=== PATIENT | male | born 1990 | race African-American/Black ===

== ENCOUNTER 2018-02-08 14:20 | Emergency (ER) | payer OTHER ==
[2018-02-08 14:39] VITALS: BP 133/83
[2018-02-08] MEDS ORDERED: Cephalexin CAP* 500 MG PO ONE (14:46)
--- NOTE | 2018-02-08 14:47 | UC ---
Lower Extremity/Ankle HPI - HPI Summary HPI Summary: 27 yo male with right toe pain cut nail too short stubbed toe now swollen and painful no fever no pus - History of Current Complaint Chief Complaint: UCLowerExtremity Stated Complaint: TOE ISSUE Time Seen by Provider: 02/08/18 14:37 Hx Obtained From: Patient Onset/Duration: Gradual Onset Severity Initially: Mild Severity Currently: Mild Pain Intensity: 6 - 6 if he bumps it Pain Scale Used: 0-10 Numeric Aggravating Factor(s): Standing, Ambulation Alleviating Factor(s): Rest, Elevation Able to Bear Weight: Yes - Allergies/Home Medications Allergies/Adverse Reactions: Allergies Allergy/AdvReac Type Severity Reaction Status Date / Time No Known Allergies Allergy Verified 02/08/18 14:30 Home Medications: Home Medications Amlodipine Besylate [Norvasc 2.5 mg tab] 2.5 mg PO DAILY 02/08/18 [History Confirmed 02/08/18] Docusate CAP* [Colace Cap*] 100 mg PO BID 02/08/18 [History Confirmed 02/08/18] Fenofibrate 40 mg PO DAILY 02/08/18 [History Confirmed 02/08/18] Ferrous Sulfate TAB* 325 mg PO DAILY 02/08/18 [History Confirmed 02/08/18] PMH/Surg Hx/FS Hx/Imm Hx Previously Healthy: Yes Endocrine History: Dyslipidemia Cardiovascular History: Hypertension - Surgical History Surgical History: None - Family History Known Family History: Positive: Hypertension - Social History Alcohol Use: None Substance Use Type: None Smoking Status (MU): Never Smoked Tobacco Review of Systems Constitutional: Negative Skin: Negative Eyes: Negative ENT: Negative Respiratory: Negative Cardiovascular: Negative Gastrointestinal: Negative Genitourinary: Negative Motor: Negative Neurovascular: Negative Musculoskeletal: Negative Neurological: Negative Psychological: Negative Is Patient Immunocompromised?: No All Other Systems Reviewed And Are Negative: Yes Physical Exam Triage Information Reviewed: Yes Appearance: Well-Appearing, No Pain Distress, Well-Nourished Vital Signs: Initial Vital Signs Temp 97.9 F 02/08/18 14:32 Pulse 76 02/08/18 14:32 Resp 18 02/08/18 14:32 BP 133/83 02/08/18 14:32 Pulse Ox 100 02/08/18 14:32 Vital Signs Reviewed: Yes Eyes: Positive: Conjunctiva Clear ENT: Positive: Hearing grossly normal. Negative: Nasal congestion, Nasal drainage, Tonsillar exudate, Trismus, Sinus tenderness, Uvula midline Neck: Positive: Supple, Nontender Respiratory: Positive: Lungs clear, Normal breath sounds, No respiratory distress Cardiovascular: Positive: RRR, No Murmur Musculoskeletal: Positive: ROM Intact Neurological: Positive: Alert Psychological Exam: Normal Skin Exam: Other - see image Lower Extremity Course/Dx - Differential Dx/Diagnosis Provider Diagnoses: right great toe infection Discharge - Sign-Out/Discharge Documenting (check all that apply): Discharge/Admit/Transfer - Discharge Plan Condition: Stable Disposition: HOME Prescriptions: Cephalexin CAP* [Keflex CAP*] 500 mg PO QID #28 cap Patient Education Materials: Cellulitis (ED) Referrals: Beti Gallegos MD [Primary Care Provider] - 3 Days (if not better) Additional Instructions: warm soapy soaks 3-4 x day until better recheck for new or worsening symptoms - Billing Disposition and Condition Condition: STABLE Disposition: Home Images Feet (Multiple View): 1 - red /swollen/no pus
== END 2018-02-08 15:00 | disposition home or self-care (01) ==
LOC: UCEAST 14:20
DX: L08.9 Local infection of the skin and subcutaneous tissue, unspecified (principal)
CPT/HCPCS: 99212; A9270-GY; G0463

== ENCOUNTER 2019-07-21 11:21 | Emergency (ER) | payer OTHER ==
[2019-07-21 11:35] VITALS: BP 137/88
--- NOTE | 2019-07-21 11:39 | UC ---
Skin Complaint HPI - HPI Summary HPI Summary: 29 yo male presents with LEFT ring finger ?infection. He tells me that he cut a hangnail here a few days ago and today noticed his finger around the nail was red, swollen, and the edge was draining bloody/clear fluid. He has been soaking in warm water with little relief. Nothing OTC for discomfort. Denies hx of MRSA or DM - History of Current Complaint Chief Complaint: UCSkin Time Seen by Provider: 07/21/19 11:39 Stated Complaint: SWOLLEN FINGER Onset/Duration: Sudden Onset Onset Severity: Moderate Current Severity: Moderate Pain Intensity: 6 Pain Scale Used: 0-10 Numeric - Allergy/Home Medications Allergies/Adverse Reactions: Allergies Allergy/AdvReac Type Severity Reaction Status Date / Time No Known Allergies Allergy Verified 07/21/19 11:35 PMH/Surg Hx/FS Hx/Imm Hx - Additional Past Medical History Additional PMH: Anemia Cardiovascular History: Hypertension - Surgical History Surgical History: None - Family History Known Family History: Positive: Hypertension - Social History Occupation: Employed Full-time Lives: With Family Alcohol Use: None Substance Use Type: None Smoking Status (MU): Never Smoked Tobacco Review of Systems All Other Systems Reviewed And Are Negative: No Constitutional: Positive: Negative Skin: Positive: Other - ?skin infection Respiratory: Positive: Negative Cardiovascular: Positive: Negative Neurological: Positive: Negative Psychological: Positive: Negative Physical Exam - Summary Physical Exam Summary: GENERAL: NAD. WDWN. No pain distress. SKIN: LEFT 4th digit: Distal phalanx around nail with mild edema and erythema. Radial aspect of nail-skin fold with dried purulent drainage and edema. Moderate TTP. CHEST: No accessory muscle use. Breathing comfortably and in no distress. CV: Pulses intact. Cap refill <2seconds NEURO: Alert. PSYCH: Age appropriate behavior. Triage Information Reviewed: Yes Vital Signs: Initial Vital Signs Temp 98.2 F 07/21/19 11:31 Pulse 72 07/21/19 11:31 Resp 19 07/21/19 11:31 BP 137/88 07/21/19 11:31 Pulse Ox 98 07/21/19 11:31 Vital Signs Reviewed: Yes Course/Dx - Course Course Of Treatment: Paronychia - Diagnoses Provider Diagnosis: Paronychia Discharge ED - Sign-Out/Discharge Documenting (check all that apply): Patient Departure All imaging exams completed and their final reports reviewed: No Studies - Discharge Plan Condition: Stable Disposition: HOME Prescriptions: Cephalexin CAP* [Keflex CAP*] 500 mg PO TID 5 Days #15 cap Patient Education Materials: Alexandrea (ED) Referrals: Beti Gallegos MD [Primary Care Provider] - Additional Instructions: If you develop a fever, shortness of breath, chest pain, new or worsening symptoms - please call your PCP or go to the ED immediately. - Billing Disposition and Condition Condition: STABLE Disposition: Home
== END 2019-07-21 11:58 | disposition home or self-care (01) ==
LOC: UCEAST 11:21
DX: L03.012 Cellulitis of left finger (principal); I10 Essential (primary) hypertension
CPT/HCPCS: 99212; G0463